=== PATIENT | male | born 1960 | race Caucasian/White ===

== ENCOUNTER 2023-07-16 19:17 | Observation (INO) | payer OTHER, SELFPAY ==
[2023-07-16] VITALS (16 sets, daily range): BP systolic 124–144; BP diastolic 70–95; PULSE 54–78; RESP 13–23; TEMP 36.5; O2SAT 94–98; BMI 26.2; BMI 27.5
--- NOTE | 2023-07-16 19:20 | ECG_ITS ---
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
--- NOTE | 2023-07-16 19:41 | ED_ITS ---
at end of shift patient was set up for obs admission HPI - Chest Pain General Chief Complaint: Chest Pain Stated Complaint: HYPERTENSION, CHEST PAIN Time Seen by Provider: 07/16/23 19:38 Source: patient Mode of arrival: walk-in Limitations: no limitations History of Present Illness HPI narrative: past history of HTN. Seen at [facility] last week for chest pain. Scheduled to see Demo Specialist later this month. Tonight chest pain returned. States he ate a frozen desert and his BP skyrocketed and he developed pressure across his chest like an elephant sitting on his chest and pain radiated down his left arm. Pain is starting to subside again. last stress test was 5 years ago MD complaint: Reports chest pain and chest heaviness Risk Factors Coronary artery disease risk factors: hypertension Related Data Home Medications Medication Instructions Recorded Confirmed albuterol sulfate 90 mcg/actuation 2 inh inhalation Q4H PRN shortness 07/16/23 07/17/23 aerosol inhaler (Ventolin HFA) of breath or wheezing calcium carbonate 550 mg-magnesium 2 tab PO Q1H PRN indigestion 07/17/23 07/17/23 hydroxide 110 mg chewable tablet (Antacid (calcium carb-magnesium hyd)) fluticasone propionate 50 1 spray intranasal DAILY 07/17/23 07/17/23 mcg/actuation nasal spray,suspension lorazepam 1 mg tablet 0.5 mg PO DAILY PRN anxiety 07/17/23 07/17/23 Previous Rx's Medication Instructions Recorded aluminum-mag hydroxide-simethicone 5 ml PO Q3H PRN nausea #355 mL 07/17/23 200 mg-200 mg-20 mg/5 mL oral susp (Maalox Advanced) Allergies Allergy/AdvReac Type Severity Reaction Status Date / Time antacids Allergy Severe Uncoded 07/16/23 19:25 antibiotics Allergy Intermediate Uncoded 07/16/23 19:25 Review of Systems ROS Status of ROS 10 or more systems reviewed and unremarkable except as noted in history and below Cardiovascular Reports: chest pain [facility] Medical History (Updated 08/01/23 @ 19:55 by Kuldip Gamez MD) Surgical History Family History Mother Family history of CHF (congestive heart failure) Father Family history of COPD (chronic obstructive pulmonary disease) Family history of cancer Family history of hypertension Family history of stroke Sister Family history of diabetes mellitus Social History Within the past year, how often did you have a drink containing alcohol: never Score interpretation: A score less than 4 is consistent with normal alcohol consumption. Smoking status: Never smoker Non-prescribed substance use: denies use Previous occupational history: self employed Highest level of school completed/degree received: high school graduate Are you now , , , , never or living with a partner: In a typical week, how many times do you talk on the telephone with family, friends, or neighbors: 3 or more times per week How often do you get together with friends or relatives: twice per week How often do you attend yarsani or confucianism services: never Do you belong to any clubs or organizations such as yarsani groups unions, fra[employer] or athletic groups, or school groups: no Total score: 2 Score interpretation: A score of greater than or equal to 2 indicates the lowest level of social isolation. Little interest or pleasure in doing things: not at all Feeling down, depressed, or hopeless: not at all Feel stressed/tense/nervous/anxious/difficulty sleeping: only a little Do you think of yourself as: straight/heterosexual Gender Identity: male Exam Constitutional Vital Signs, click to edit/add: Last Vital Signs Temp 97.8 F 07/17/23 14:00 Pulse 59 L 07/17/23 14:00 Resp 18 07/17/23 14:00 BP 121/76 07/17/23 14:00 Pulse Ox 97 07/17/23 14:00 O2 Del Method Room Air 07/17/23 14:00 Common normals: no apparent distress, average body habitus, oriented x3, no limitations, healthy appearing and alert [facility] Common normals: normocephalic and head/scalp atraumatic Eye Common normals: PERRL, EOMs intact bilaterally, conjunctivae normal and no scleral icterus Respiratory Common normals: normal respiratory effort, no retractions, no use of accessory muscles and clear to auscultation bilaterally Cardio Common normals: regular rate, regular rhythm, S1 normal heart sound and S2 normal heart sound GI Common normals: Normal to inspection, nondistended, normoactive bowel sounds present, soft to palpation and non-tender Extremity Common normals: normal to inspection and full ROM Neuro Common normals: oriented x3, CN's II-XII intact bilaterally, moves all extremities, no focal motor deficits and no sensory deficits noted Psych Appearance: grossly normal Course Course Hospital Course: Patient is a 63-year-old male with past medical history of idiopathic abdominal pain spanning over fifteen years, anxiety, elevated blood pressure without the diagnosis of hypertension. He reports he's been dealing with on and off abdominal pain diarrhea or constipation, nausea, dizziness for many years. He has been through rounds of neomycin, colon cleanses, diet regimens and last upper and lower scopes were done approximately two years ago. 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 He does see his PCP regularly for episodes of his abdominal pain. He notes that the only diagnosis he has ever gotten is a bacterial overgrowth and he states that last imaging was about two years ago as well. he presented to the Emergency Room last night after eating a small cup of red Jell-O. He reports that artificial sweeteners and colors will often activate his gut pain. He described the pain as radiating into the right side of his chest some nausea and also some increased reflux symptoms. Patient was admitted to the hospital for chest pain rule out. Pain improved most with a gastrointestinal cocktail and Carafate. At this time during admission exam patient denies having any current pain, sweating, fevers, nausea, diarrhea, abdominal pain. We discussed all negative findings including normal troponin normal electrolytes and normal EKG and normal d-dimer, and there have been no events on telemetry. CT scan of abdomen and pelvis today showed diverticulosis with no diverticulitis. Results discussed with patient. I sent him in prescription for Maalox. We made him follow up appt with a new GI doctor for September, he will need and EGD and colonoscopy and to discuss gastric emptying study. No changes to home medications were made. Vital Signs Vital signs: Vital Signs Pulse Rate 73 07/16/23 19:22 Respiratory Rate 18 07/16/23 19:22 Blood Pressure 144/95 H 07/16/23 19:22 Pulse Oximetry 98 07/16/23 19:22 Oxygen Delivery Method Room Air 07/16/23 19:22 Temperature 97.8 F 07/17/23 14:00 Pulse Rate 59 L 07/17/23 14:00 Respiratory Rate 18 07/17/23 14:00 Blood Pressure 121/76 07/17/23 14:00 Pulse Oximetry 97 07/17/23 14:00 Oxygen Delivery Method Room Air 07/17/23 14:00 MDM - Chest Pain Lab Data Labs: Lab Results 07/16/23 07/16/23 Range/Units 19:55 21:55 WBC 5.5 (4.0-11.0) 10^3/uL RBC 4.98 (4.70-6.10) 10^6/uL Hgb 15.1 (14.0-18.0) g/dL Hct 43.8 (42.0-54.0) % MCV 88.0 (80.0-94.0) fL MCH 30.3 (25.9-34.0) pg MCHC 34.5 (29.9-35.2) g/dL RDW 12.6 (11.0-15.0) % Plt Count 187 (150-450) 10^3/uL MPV 11.1 (9.5-13.5) fL Neut % (Auto) 52.2 (43.0-75.0) % Lymph % (Auto) 35.0 (20.5-60.0) % [place] % (Auto) 10.0 (1.7-12.0) % Eos % (Auto) 2.2 (0.9-7.0) % Baso % (Auto) 0.4 (0.2-2.0) % Neut # (Auto) 2.9 (1.4-6.5) 10^3/uL Lymph # (Auto) 1.9 (1.2-3.8) 10^3/uL [place] # (Auto) 0.6 (0.3-0.8) 10^3/uL Eos # (Auto) 0.1 (0.0-0.7) 10^3/uL Baso # (Auto) 0.0 (0.0-0.1) 10^3/uL Abs Immat Gran (auto) 0.01 (0.00-0.03) 10^3/uL Imm/Tot Granulo (auto) 0.2 (0.0-0.5) % D-Dimer <0.19 (<=0.59) mg/L FEU Sodium 139 (136-145) mmol/L Potassium 3.4 L (3.5-5.1) mmol/L Chloride 104 (98-107) mmol/L Carbon Dioxide 28.5 (21.0-32.0) mmol/L Anion Gap 9.9 BUN 29.0 H (7.0-18.0) mg/dL Creatinine 1.18 (0.70-1.30) mg/dL Est GFR ( Amer) >60 (>=60) Est GFR (Non-Af Amer) >60 (>=60) BUN/Creatinine Ratio 24.6 Glucose 99 (74-106) mg/dL Calcium 9.0 (8.5-10.1) mg/dL Troponin I High Sens 11.2 11.4 (4.0-76.1) pg/mL Discharge Plan Discharge Chief Complaint: Chest Pain Clinical Impression: Chest pain Patient Disposition: Admitted as Observation Discharge Date/Time: 07/16/23 22:49
--- NOTE | 2023-07-16 19:45 | XR_ITS ---
[address] [address] Patient Name: TAMMI BECKETT MRN: [id number] date: 1960 Sex: M Assigned Patient Location: ER Current Patient Location: ER Accession/Order Number: [id number] Exam Date: 07/16/2023 19:50 Report Date: 07/16/2023 20:07 At the request of: BRIANNA DAI Procedure: XR chest 1V EXAMINATION: XR chest 1V HISTORY: Chest pain COMPARISON: Chest x-ray 04/05/2016 TECHNIQUE: Portable chest FINDINGS: The lung parenchyma is free of consolidation or infiltrate. No pneumothorax or pleural effusion. The cardiac, mediastinal and hilar contours are normal. The visualized osseous structures exhibit no gross abnormality. XR/XR chest 1V IMPRESSION: No acute cardiopulmonary abnormality. Electronically authenticated by: EARL MARTIN Date: 07/16/2023 20:07
--- NOTE | 2023-07-16 20:06 | PC.NURSE ---
patient states he was at [facility] recently for chest pain. states that he was at the fair on , ate a suger free jello and shortly after started to experience center chest pain and pressure. states it feels like he has an elephant on his chest. when he first arrived he stated pain was 8/10. now states pain has come down a lot, but it comes in waves. patient denies any nausea or vomiting. patient admits to having recurring issues with constipation. states he does go daily but not alot. also states he has been burping and passing gas alot. patient was diagnosed with indigestion at [facility] and sent home. patient does not believe that is what he is experiencing. [facility] caret does have bowel sounds inn all 4 quadrants. iv initiated. patient denies needs at this time. ekg obtained. sinus rhythm
[2023-07-16 20:23] LABS: Basophils Percent Auto 0.4 % (0.2-2.0); D Dimer <0.19 mg/L FEU (<=0.59); Eosinophils Absolute Auto 0.1 10^3/uL (0.0-0.7); Eosinophils Percent Auto 2.2 % (0.9-7.0); Hematocrit 43.8 % (42.0-54.0); Hemoglobin 15.1 g/dL (14.0-18.0); Immature Granulocytes Abs Auto 0.01 10^3/uL (0.00-0.03); Immature Granulocytes Pct Auto 0.2 % (0.0-0.5); Lymphocytes Absolute Auto 1.9 10^3/uL (1.2-3.8); Mean Corpuscular HGB Conc 34.5 g/dL (29.9-35.2); Mean Corpuscular Hemoglobin 30.3 pg (25.9-34.0); Mean Platelet Volume 11.1 fL (9.5-13.5); Monocytes Absolute Auto 0.6 10^3/uL (0.3-0.8); Neutrophils Absolute Auto 2.9 10^3/uL (1.4-6.5); Neutrophils Percent Auto 52.2 % (43.0-75.0); Platelet Count 187 10^3/uL (150-450); Red Blood Count 4.98 10^6/uL (4.70-6.10); Red Cell Distribution Width 12.6 % (11.0-15.0); White Blood Count 5.5 10^3/uL (4.0-11.0)
[2023-07-16 20:31] LABS: Anion Gap 9.9; BUN Creatinine Ratio 24.6; Carbon Dioxide 28.5 mmol/L (21.0-32.0); Chloride 104 mmol/L (98-107); Estimated GFR (African America >60 (>=60); Estimated GFR (Non-African Ame >60 (>=60); Glucose 99 mg/dL (74-106); Potassium 3.4 mmol/L (3.5-5.1); Sodium 139 mmol/L (136-145); Troponin I High Sensitivity 11.2 pg/mL (4.0-76.1)
[2023-07-16 22:17] LABS: Troponin I High Sensitivity 11.4 pg/mL (4.0-76.1)
[2023-07-17] VITALS (10 sets, daily range): BP systolic 121–129; BP diastolic 76–84; PULSE 53–77; RESP 16–18; TEMP 36.6; O2SAT 93–97; BMI 27.5
--- NOTE | 2023-07-17 03:57 | W.PM.TELEPN ---
Progress Note: Subjective Subjective Interval history: pt is a 63 m with hx htn and anxiety presenting with c/o lft CP. onset last evening approx 20min after eating jello. described as sharp with rx down LUE and across chest. 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 pt expresses concern that he ma have been exposed to asbestosis as well but not sure. states usually belching and flatulence releives the cp and abd pain but did not this time. repirts hx of undergoing biosis protocol for the past 5 yrs per PCP. states he is limited in deitary options as result incl avoidance of spices and many vegetables as he can only anya broccoli. he has seen 2 diff GI docs in past for this but not currently as both prev GI docs have . He reports pcp was planning to refer him to a new GI doc for poss EGD. Hx of prior egd with ulcers. Also notes intoelrance to PPIs as he states they cause him to actually bleed. has hasd maalox and carafate in past but doesnt recall if they prev helped and willing to try again. denies and fevr, no vomiting nor diarrhea.recent episdoe last wk after eating steak sw and went to [facility] with neg w/u with rc to f/u cardio outpt but has not yet done so. 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 no prior cath. reports lost approx 27lbs in past 1.5mo d/t inability to keep anything down. In ED, VSS. Labs noted for k 3.4 o/w rest labs normal. EKG no acute ischemia and trop neg x 1. Exam Constitutional Vital Signs, click to edit/add: Last Vital Signs Temp 97.7 F 07/16/23 23:03 Pulse 53 L 07/17/23 01:53 Resp 20 07/16/23 23:03 BP 142/89 H 07/16/23 23:03 Pulse Ox 94 L 07/16/23 23:03 O2 Del Method Room Air 07/16/23 23:03 Common normals: no apparent distress and oriented x3 HENMT Common normals: normocephalic Head and scalp: atraumatic Neck & C-Spine Common normals: full ROM General: normal visual inspection Respiratory Common normals: normal respiratory effort Effort & inspection: able to speak in complete sentences Auscultation: clear to auscultation bilaterally Cardio Common normals: regular rate, regular rhythm, S1 normal heart sound, S2 normal heart sound and no murmurs GI Inspection: normal to inspection Auscultation: normoactive bowel sounds Palpation: soft; non-tender Extremity Common normals: normal to inspection and full ROM Neuro Common normals: oriented x3, CN's II-XII intact bilaterally, moves all extremities, no focal motor deficits and no sensory deficits noted Psych Common normals: mental status grossly normal, cooperative and speech normal Activity/motor behavior: appropriate eye contact Mood and affect: depressed mood and anxious Progress Note: Objective Labs Labs: Short CBC 07/16/23 Range/Units 19:55 WBC 5.5 (4.0-11.0) 10^3/uL Hgb 15.1 (14.0-18.0) g/dL Hct 43.8 (42.0-54.0) % Plt Count 187 (150-450) 10^3/uL BMP 07/16/23 19:55 Sodium 139 Potassium 3.4 L Chloride 104 Carbon Dioxide 28.5 BUN 29.0 H Creatinine 1.18 Glucose 99 Calcium 9.0 ECG Prior ECG tracings: available for review Imaging Chest x-ray: My impression: nap Progress Note: A&P Assessment and Plan (1) Chest pain: (2) High blood pressure: (3) Stomach pain: Plan L CP Chronic Abd Pian/Gastritis HTN Milkd hypokalemia Anxiety Plan: initial trop neg, chk serially ekg repeat in am echo asa ec, lipitor. chk lipid panel ddimer and cxr neg trial gi cocktail with maalox, carafate. pt declines PPI, states actually caused him to bleed needs o/pt GI f/u with egd and further w/u monitor bp. not on any home meds replete k, repeat labs in am prn ativan dvt p/x lovenox full code Telemedicine Attestation Telemedicine Attestation I conducted this encounter from MD[] via secure live, [id number] video conference with the patient, located at [facility] with [RN Staci]. Prior to the interview, the risks and benefits of telemedicine were discussed with the patient and verbal consent was obtained.
[2023-07-17] MEDS: lidocaine HCL 15 ML, MAG HYDROX/ALUMINUM HYD/SIMETH 30 ML, HYOSCYAMINE SULFATE 0.25 MG PO ×2 (04:07→15:22)
[2023-07-17 05:38] LABS: Anion Gap 9.8; BUN Creatinine Ratio 21.2; Calcium 8.8 mg/dL (8.5-10.1); Carbon Dioxide 26.8 mmol/L (21.0-32.0); Chloride 105 mmol/L (98-107); Chol HDL Ratio 4.4; Cholesterol 166 mg/dL (<=200); Estimated GFR (African America >60 (>=60); Estimated GFR (Non-African Ame >60 (>=60); Glucose 89 mg/dL (74-106); HDL Cholesterol 38 mg/dL (40-60); Magnesium 2.3 mg/dL (1.8-2.4); Potassium 3.6 mmol/L (3.5-5.1); Sodium 138 mmol/L (136-145); Triglycerides 61 mg/dL (<=150); VLDL CHOLESTEROL 12.2 mg/dL
[2023-07-17 05:39] LABS: Troponin I High Sensitivity 8.2 pg/mL (4.0-76.1)
--- NOTE | 2023-07-17 06:00 | ECG_ITS ---
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
--- NOTE | 2023-07-17 08:28 | PM.HP ---
H&P: HPI History of Present Illness Chief complaint: HYPERTENSION, CHEST PAIN Narrative: patient is a 63-year-old male with past medical history of idiopathic abdominal pain spanning over fifteen years, anxiety, elevated blood pressure without the diagnosis of hypertension. He reports he's been dealing with on and off abdominal pain diarrhea or constipation, nausea, dizziness for many years. He has been through rounds of neomycin, colon cleanses, diet regimens and last upper and lower scopes were done approximately two years ago. He has not followed lately with a unloading checker as all have retired. He does see his PCP regularly for episodes of his abdominal pain. He notes that the only diagnosis he has ever gotten is a bacterial overgrowth and he states that last imaging was about two years ago as well. he presented to the Emergency Room last night after eating a small cup of red Jell-O. He reports that artificial sweeteners and collars will often activate his gut pain. He described the pain as radiating into the right side of his chest some nausea and also some increased reflux symptoms. Patient was admitted to the hospital for chest pain rule out. Pain improved most with a gastrointestinal cocktail and Carafate. At this time during admission exam patient denies having any current pain, sweating, fevers, nausea, diarrhea, abdominal pain. We discussed all negative findings including normal troponin normal electrolytes and normal EKG and normal d-dimer, and there have been no events on telemetry. Since it has been several years since his last imaging of his belly we discussed getting a CT scan of abdomen and pelvis today. Review of Systems ROS Narrative ROS: a complete review of systems were reviewed with patient and are positive as below or listed in History of Chief Complaint. General: no fever, chills, night sweats Head: no headache, trauma, visual changes, nausea or vomiting Skin: no reported rashes, itching or sores Eyes: no blurriness of vision Ears: no reported hearing loss, vertigo, earache, or tinnitus Throat: no sore throat, hoarseness, swelling of neck, or tongue pain Heart: no chest pain Lungs: no shortness of breath or cough GI: no diarrhea or vomiting/nausea Urinary: no urinary urgency, frequency or pain Neuro: no numbness or tingling HEM: no bleeding issues or bruising ENDO: no thyroid problems Psych: no anxiety or depression [facility] Medical History (Updated 07/17/23 @ 05:56 by Kate Hsu MD) Surgical History Family History Mother Family history of CHF (congestive heart failure) Father Family history of COPD (chronic obstructive pulmonary disease) Family history of cancer Family history of hypertension Family history of stroke Sister Family history of diabetes mellitus Social History Within the past year, how often did you have a drink containing alcohol: never Score interpretation: A score less than 4 is consistent with normal alcohol consumption. Smoking status: Never smoker Non-prescribed substance use: denies use Previous occupational history: self employed Highest level of school completed/degree received: high school graduate Are you now , , , , never or living with a partner: In a typical week, how many times do you talk on the telephone with family, friends, or neighbors: 3 or more times per week How often do you get together with friends or relatives: twice per week How often do you attend nondenominational or synagogue services: never Do you belong to any clubs or organizations such as nondenominational groups unions, fraternal or athletic groups, or school groups: no Total score: 2 Score interpretation: A score of greater than or equal to 2 indicates the lowest level of social isolation. Little interest or pleasure in doing things: not at all Feeling down, depressed, or hopeless: not at all Feel stressed/tense/nervous/anxious/difficulty sleeping: only a little Do you think of yourself as: straight/heterosexual Gender Identity: male Meds Home Medications and Allergies Home Medications Medication Instructions Recorded Confirmed Type albuterol sulfate 90 mcg/actuation 2 inh inhalation Q4H PRN shortness 07/16/23 07/17/23 History aerosol inhaler (Ventolin HFA) of breath or wheezing calcium carbonate 550 mg-magnesium 2 tab PO Q1H PRN indigestion 07/17/23 07/17/23 History hydroxide 110 mg chewable tablet (Antacid (calcium carb-magnesium hyd)) fluticasone propionate 50 1 spray intranasal DAILY 07/17/23 07/17/23 History mcg/actuation nasal spray,suspension lorazepam 1 mg tablet 0.5 mg PO DAILY PRN anxiety 07/17/23 07/17/23 History Allergies Allergy/AdvReac Type Severity Reaction Status Date / Time antacids Allergy Severe Uncoded 07/16/23 19:25 antibiotics Allergy Intermediate Uncoded 07/16/23 19:25 Exam Narrative Exam Narrative: General: Patient is alert, and oriented to person, place and time with normal affect, proper hygiene Skin: no visible rashes, or ulcers Head: atraumatic, acephalic Eyes: PERRLA, no nystagmus present, conjunctiva clear, no scleral icterus Ears: normal Tympanic Membrane, normal gross auditory acuity Nose: symmetric, no discharge, no maxillary or frontal sinus tenderness Mouth/Throat: no erythema, exudate, or tonsillar enlargement, normal dentition Neck: no masses palpated, normal thyroid, no JVD or audible carotid bruits Heart: Normal rate and rhythm, no murmurs/rubs/gallops Lungs: no audible wheezes, crackles and normal breath sounds all lung escalera Abdomen: Normal audible bowel sounds, no distension, No palpable masses, no organomegaly, no rebound/guarding/ or rigidity Musculoskeletal: muscle atrophy noted, ROM is limited due to being in hospital bed, no swelling bilateral lower extremities Vascular: Normal carotid, radial, femoral, posterior tibial, and dorsalis pedis pulses Lymph: no supraclavicular, axillary, or anterior/posterior cervical adenopathy Neuro: CN II-X grossly intact, normal sensation upper and lower extremities Constitutional Vital Signs, click to edit/add: Last Vital Signs Temp 97.8 F 07/17/23 07:24 Pulse 62 07/17/23 07:44 Resp 16 07/17/23 07:24 BP 123/78 07/17/23 07:24 Pulse Ox 93 L 07/17/23 07:24 O2 Del Method Room Air 07/17/23 07:24 Results Labs Labs: Short CBC 07/16/23 Range/Units 19:55 WBC 5.5 (4.0-11.0) 10^3/uL Hgb 15.1 (14.0-18.0) g/dL Hct 43.8 (42.0-54.0) % Plt Count 187 (150-450) 10^3/uL BMP 07/16/23 07/17/23 19:55 04:03 Sodium 139 138 Potassium 3.4 L 3.6 Chloride 104 105 Carbon Dioxide 28.5 26.8 BUN 29.0 H 21.0 H Creatinine 1.18 0.99 Glucose 99 89 Calcium 9.0 8.8 Assessment and Plan Assessment and Plan (1) Chest pain: Assessment and Plan: all workup has been negative or within normal range. Less likely cardiac in nature and I think it's is more of his chronic abdominal pain. No need for echocardiogram, will check a CT of abdomen and pelvis. Symptoms seem to improve with the gastrointestinal cocktail most of all. (2) High blood pressure: Assessment and Plan: since abdominal pain has improved high blood pressure readings have also improved. Most likely a pain or stress response. (3) Stomach pain: Assessment and Plan: this is been going on for many years we discussed the need for outpatient follow-up and to establish care with a gastrointestinal doctor for an upper endoscopy. Also to discuss a gastric emptying study may be pertinent. consideration of a prokinetic agent may be of benefit as well. Plan patient is a full code Patient was placed on Lovenox for deep vein thrombosis prophylaxis Patient is in observation status and is not expected to stay more than 2 midnights
--- NOTE | 2023-07-17 11:05 | CT_ITS ---
[address] [address] Patient Name: TAMMI BECKETT MRN: [id number] date: 1960 Sex: M Assigned Patient Location: [place] Current Patient Location: Accession/Order Number: [id number] Exam Date: 07/17/2023 13:40 Report Date: 07/17/2023 14:09 At the request of: EDUARDO CHIRSTIANSON Procedure: CT abdomen pelvis w con EXAM: CT abdomen pelvis w con; [id number] REASON FOR EXAM: RUQ pain, diarrhea, nausea TECHNIQUE: Helical CT images of the abdomen and pelvis were obtained after the administration of oral and IV contrast. Multiplanar reformats were generated at the scanner. Dose reduction technique used: Automated exposure control and/or adjustment of the mA and/or kV according to patient size and/or use of iterative reconstruction technique. COMPARISON: CT abdomen/pelvis 12/15/2015. FINDINGS: Visualized Chest: No pleural effusion or any significant pulmonary findings. Abdomen: Liver: Within normal limits. Gallbladder: No calcified gallstones. No acute inflammatory changes. Bile Ducts: No significant biliary ductal dilatation. Pancreas: No mass, ductal dilatation, or inflammatory changes. Spleen: No splenomegaly or focal lesion. Adrenals: No nodules. Kidneys: -No stones or hydronephrosis. -Partially exophytic renal cyst arising from the upper pole of the left kidney measuring up to 1.5 cm. Vascular: No aortic aneurysm. Lymph Nodes: No adenopathy. Abdominal Wall: No hernia or mass. Pelvis: No mass or adenopathy. Bowel/Peritoneal Cavity/Mesentery: -Severe colonic diverticulosis without evidence of acute diverticulitis. -No bowel obstruction or significant ileus. -No acute inflammatory changes. -No free air or free fluid. Musculoskeletal: No acute fracture or suspicious osseous lesion. CT/CT abdomen pelvis w con IMPRESSION: 1. No acute intra-abdominal abnormality demonstrated. 2. Severe diverticulosis without evidence of acute diverticulitis. Electronically authenticated by: ZIA MERINO Date: 07/17/2023 14:09
--- NOTE | 2023-07-17 11:30 | CM.NOTE ---
Rounds made with Dr. Vivar, possible discharge this evening. Pt will get CT abdomen and cardiac echo.
--- NOTE | 2023-07-17 15:03 | P.DS_ITS ---
DS: Providers Provider Date of admission: 07/16/23 22:49 Primary care physician: CIRA WILLIS DS: Diagnosis Discharge Diagnosis (1) Chest pain: (2) High blood pressure: (3) Stomach pain: (4) Diverticulosis of colon: DS: Summary Hospital Course Hospital Course: Patient is a 63-year-old male with past medical history of idiopathic abdominal pain spanning over fifteen years, anxiety, elevated blood pressure without the diagnosis of hypertension. He reports he's been dealing with on and off abdominal pain diarrhea or constipation, nausea, dizziness for many years. He has been through rounds of neomycin, colon cleanses, diet regimens and last upper and lower scopes were done approximately two years ago. 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 He does see his PCP regularly for episodes of his abdominal pain. He notes that the only diagnosis he has ever gotten is a bacterial overgrowth and he states that last imaging was about two years ago as well. he presented to the Emergency Room last night after eating a small cup of red Jell-O. He reports that artificial sweeteners and colors will often activate his gut pain. He described the pain as radiating into the right side of his chest some nausea and also some increased reflux symptoms. Patient was admitted to the hospital for chest pain rule out. Pain improved most with a gastrointestinal cocktail and Carafate. At this time during admission exam patient denies having any current pain, sweating, fevers, nausea, diarrhea, abdominal pain. We discussed all negative findings including normal troponin normal electrolytes and normal EKG and normal d-dimer, and there have been no events on telemetry. CT scan of abdomen and pelvis today showed diverticulosis with no diverticulitis. Results discussed with patient. I sent him in prescription for Maalox. We made him follow up appt with a new GI doctor for September, he will need and EGD and colonoscopy and to discuss gastric emptying study. No changes to home medications were made. Status at Discharge Functional status at discharge: independent ambulation Time Spent with Patient Time attestation: Total time spent providing and/or coordinating discharge services: Time spent: greater than 30 minutes Exam Narrative Exam Narrative: no changes to H&P exam that was performed on the same day, please see that note. Constitutional Vital Signs, click to edit/add: Last Vital Signs Temp 97.8 F 07/17/23 14:00 Pulse 59 L 07/17/23 14:00 Resp 18 07/17/23 14:00 BP 121/76 07/17/23 14:00 Pulse Ox 97 07/17/23 14:00 O2 Del Method Room Air 07/17/23 14:00 DS: Data Data Completed and Pending Labs on day of discharge: Labs from last 24 hours 07/17/23 07/16/23 07/16/23 04:03 21:55 19:55 WBC 5.5 RBC 4.98 Hgb 15.1 Hct 43.8 MCV 88.0 MCH 30.3 MCHC 34.5 RDW 12.6 Plt Count 187 MPV 11.1 Neut % (Auto) 52.2 Lymph % (Auto) 35.0 [place] % (Auto) 10.0 Eos % (Auto) 2.2 Baso % (Auto) 0.4 Neut # (Auto) 2.9 Lymph # (Auto) 1.9 [place] # (Auto) 0.6 Eos # (Auto) 0.1 Baso # (Auto) 0.0 Abs Immat Gran (auto) 0.01 Imm/Tot Granulo (auto) 0.2 D-Dimer <0.19 Sodium 138 139 Potassium 3.6 3.4 L Chloride 105 104 Carbon Dioxide 26.8 28.5 Anion Gap 9.8 9.9 BUN 21.0 H 29.0 H Creatinine 0.99 1.18 Est GFR ( Amer) >60 >60 Est GFR (Non-Af Amer) >60 >60 BUN/Creatinine Ratio 21.2 24.6 Glucose 89 99 Calcium 8.8 9.0 Magnesium 2.3 Troponin I High Sens 8.2 11.4 11.2 Triglycerides 61 Cholesterol 166 LDL Cholesterol, Calc 116.0 VLDL Cholesterol 12.2 HDL Cholesterol 38 L Cholesterol/HDL Ratio 4.4 Discharge Plan Discharge Disposition: Home, Self-Care Discharge Medications: New alum-mag hydroxide-simeth [Maalox Advanced] 200-200-20 mg/5 mL suspension 5 ml PO Q3H PRN (Reason: nausea) Qty: 355 0RF Continued albuterol sulfate [Ventolin HFA] 90 mcg/actuation HFA aerosol inhaler 2 inh INHALATION Q4H PRN (Reason: shortness of breath or wheezing) fluticasone propionate 50 mcg/actuation spray,suspension 1 spray INTRANASAL DAILY Antacid (calcium carb-mag hyd) 550-110 mg tablet,chewable 2 tab PO Q1H PRN (Reason: indigestion) Rx Instructions: do not exceed 12 tabs in 24 hrs lorazepam 1 mg tablet 0.5 mg PO DAILY PRN (Reason: anxiety) Activity: increase activity as tolerated Diet: advance to your usual diet Patient Instructions: Abdominal Pain (DC) Forms: Portal Instructions Follow Up Appointments: Follow up appt. with Dr. Willis on Jul.27 @ 2:30pm Office #: [phone] Follow up appt. with Dr. Zaire Barton (Financial Services Representative) on Sep.27 @ 2:45pm Office #: [phone] [address]
--- NOTE | 2023-07-18 14:41 | CM.DCFOLLOWU ---
Person spoke with: patient How are you feeling? terrible, he went to his PCP today, trying to get into a GI doctor sooner than September 27, still losing weight How is your pain? some Did you understand your discharge instructions? yes Do you have any questions about your discharge instructions? no Were you given any prescriptions at discharge? yes Were you able to get your prescriptions filled? yes Do you understand how to take your medications as ordered? yes Do you have any questions about your follow up appointment and do you plan to keep your follow up appointment? had follow up today with PCP, attempting to get in GI sooner Is there anything else that you would like to discuss? no Questions/Comments/Concerns/Other: Very appreciative of [facility]
== END 2023-07-17 15:48 | disposition home or self-care (01) ==
LOC: ER 22:58 → MS 23:03
PROVIDERS: Internal Medicine; Admitting Provider Family Medicine; Emergency Provider Internal Medicine; PCP Family Medicine; Visit Provider Family Medicine
DX: R07.9 Chest pain, unspecified (principal); R10.9 Unspecified abdominal pain; K57.30 Diverticulosis of large intestine without perforation or abscess without bleeding; R03.0 Elevated blood-pressure reading, without diagnosis of hypertension; F41.9 Anxiety disorder, unspecified; Z79.899 Other long term (current) drug therapy
CPT/HCPCS: 36415; 71045; 74177; 80048; 80061; 83735; 84484; 85025; 85378; 93005; 94761; 99285; G0378; Q3014; Q9967